=== PATIENT | female | born 1965 | race Two or more races ===

== ENCOUNTER → 2016-10-27 | Outpatient (CLI) | payer BC ==
[~2016-10-27] MED LIST: BIOT5TAB PO; CALC1TAB PO; CHOL200012 PO; HYDR12.58 PO; IBUP200T5 PO
[2016-10-27 10:30] LABS: ASPARTATE AMINO TRANSFERASE 16 U/L (15-37); BLOOD UREA NITROGEN 11 mg/dL (7-18)
== END | disposition home or self-care (01) ==
LOC: STAR 09:16
PROVIDERS: ATTEND Surgery
DX: Z01.812 Encounter for preprocedural laboratory examination (principal); D48.62 Neoplasm of uncertain behavior of left breast
CPT/HCPCS: 36415; 80053